=== PATIENT | female | born 1975 | race Caucasian/White ===

== ENCOUNTER 2023-04-18 08:29 | Day surgery (SDC) | payer BC, SELFPAY ==
--- NOTE | 2023-04-16 12:44 | HP.PCM_ITS ---
History and Physical Date of Admission: 04/18/23 Pre-Op History and Physical ? HPI: The patient is a 47 year old female presenting for pre-operative visit. She is scheduled for Hysteroscopy D&C and polypectomy with insertion of liletta IUD , for Aub and endometrial polp, contraception on . Procedure discussed along with risks, benefits and complications. Other alternatives discussed for management. Consent form signed? Yes. ? ? PAST MEDICAL HISTORY PAST MEDICAL HISTORY Diagnosis Date ? Asthma ? ? allergy induced ? Depression with anxiety ? ? history of ? Heartburn ? ? Migraine with aura ? ? Seasonal allergies ? ? ? PAST SURGICAL HISTORY PAST SURGICAL HISTORY Procedure Laterality Date ? PAST SURGICAL HISTORY OF ? 1995 ? pilonidal cyst ? PAST SURGICAL HISTORY OF ? ~2001 ? breast reduction ? TONSILLECTOMY HX ? 1992 ? TOOTH EXTRACTION ? ? ? wisdom teeth, bicuspids ? ? ? CURRENT MEDICATIONS Current Outpatient Medications Medication Sig Dispense Refill ? FLUoxetine (PROZAC) 10 mg capsule Take 1 capsule by mouth once daily. 30 capsule 2 ? montelukast (SINGULAIR) 10 mg tablet Take 1 tablet by mouth daily at be dtime. 90 tablet 3 ? albuterol HFA (PROAIR HFA) 90 mcg/actuation inhaler Inhale 2 Puffs as instructed every 6 hours as needed. For wheezing/shortness of breath 18 g 5 ? Fexofenadine-Pseudoephedrine (ONI-D 24 HOUR) 180-240 mg per 24 hr tablet Take 1 tablet by mouth once daily as needed (sinus/cold symptoms). 30 tablet 0 ? No current facility-administered medications for this visit. ? ? ALLERGIES: Codeine, Morphine, and Penicillins ? PERSONAL HISTORY: SOCIAL HISTORY Social History ? Tobacco Use ? Smoking status: Former ? ? Packs/day: 0.50 ? ? Years: 20.00 ? ? Pack years: 10.00 ? ? Types: Cigarettes ? ? Quit date: 12/02/2014 ? ? Years since quittin.3 ? Smokeless tobacco: Never ? Tobacco comments: ? ? started smoking 19yo. usually 1/2PPD Vaping Use ? Vaping Use: Never used Substance Use Topics ? Alcohol use: Yes ? ? Alcohol/week: 7.5 standard drinks ? ? Types: 1 Glasses of Wine (5oz), 2 Cans of Beer (12oz) per week ? ? Comment: a couple of drinks weekly ? Drug use: No ? FAMILY HISTORY: FAMILY HISTORY FAMILY HISTORY Problem Relation Age of Onset ? Hypertension Mother ? ? Thyroid Mother ? ? Hypertension Father ? ? Heart Father 76 ? [place], CABG x 6, heart surgery 2017 ? Uterine Fibroids Sister ? ? Coronary Artery Disease Maternal Grandfather ? ? [place] ? Diabetes Paternal Grandmother ? ? Coronary Artery Disease Paternal Grandfather ? ? [place] ? Breast Cancer Maternal Aunt ? ? Diabetes Paternal Uncle ? ? x2 ? Coronary Artery Disease Paternal Uncle ? ? CAB[place] ? ? REVIEW OF SYMPTOMS: negative except as noted above PHYSICAL EXAMINATION: ? VITALS: Blood pressure 122/70, height 5' 2.6 (1.59 m), weight 166 lb (75.3 kg), last menstrual period 03/15/2023. ? GENERAL: The patient is well nourished, well hydrated in no acute distress. , The patient is oriented to time, place, and person. NECK: full range of motion LUNGS: Clear to auscultation bilaterally. no wheezes, rhonchi or rales HEART: Regular rate and rhythm, Normal heart sounds, and No murmurs or gallops ? IMPRESSION: 47yo with AUB, Endometrial Polyp, Contraceptive mgmt ? PLAN: Hysteroscopy, D&C, polypectomy with symphion, Insertion Liletta IUD ? Pt has been counseled on risks/benefits and alternatives of surgery including but not limited to anesthesia, bleeding, infection, uterine perforation with subsequent injury to pelvic structures including bowel, bladder, ureters and vessels. Pt wishes to proceed with surgery at this time. ? Pre and post op instructions reviewed ? I have reviewed and updated past medical and surgical history, medications and allergies Dora Xavier MD ?3:25 PM
--- NOTE | 2023-04-17 | EMB_PTH ---
PATIENT: FEDERICO SNOW LOC: [facility] [place] U#:[id number] AGE/SX: 48/F ROOM: RE04/18/[address]: Dr. Dora Montano, MDDOB: 1975 BED: DIS: 04/18/2023 SPEC #: [id number] RECD: 04/18/23 12:03 STATUS: MARK MCCAINYanique #: [id number] JONATHAN: 04/17/23 00:[address]: Dora Montano DEPT: SURGICAL PATHOLOGY RECD BY: Charli Harrison ENTERED: 04/18/23 12:03 SP TYPE: ENDOM BX/C MALLIKA DR: Dr. Damien Reynoso MD Tissues: Endometrium, NOS Procedures: Surgery Specimen Level IV HEADER OPERATION: Hysteroscopy, D & C Symphion, polypectomy, IUD insertion PRE-OP DIAGNOSIS: Abnormal uterine bleeding, endometrial polyp, contraceptive management TISSUE SUBMITTED: Endometrial shavings and polyp MICROSCOPIC DIAGNOSIS Endometrial shavings and polyp: Polypoid fragments of disordered proliferative endometrium to focal simple hyperplasia without atypia. Squamous morules. Changes suggestive of adenomyoma/adenomyosis. AM:missy 04/19/2023 COMMENT Case has been reviewed in consultation with Dr. Oshea who concurs with the above diagnosis. CHITO:HEMALATHA MICROSCOPIC DESCRIPTION Slides are reviewed. GROSS DESCRIPTION Received in fixative is one container labeled with the patient's name and designated endometrial shavings and polyp. The specimen consists of multiple irregular fragments of cabrera-pink soft tissue mixed with hemorrhagic tissue that in aggregate measure 5.0 x 3.0 x 0.8 cm. The entire specimen is submitted in five cassettes. / Brittny 04/18/2023 TC:5 CPT: 98749 ADDENDUM ADDENDUM ADDENDUM ADDENDUM ADDENDUM ADDENDUM ADDENDUM ADDENDUM ADDENDUM ADDENDUM 05/20/2023 10:39 ADDENDUM 05/20/2023 10:39 ADDENDUM 05/20/2023 10:39 ADDENDUM 05/20/2023 10:39 ADDENDUM 05/20/2023 10:39 This addendum is added to incorporate an outside pathology consultation report. The case was examined at [facility] (#[id number]) and the following diagnosis was rendered. Endometrial biopsy: Fragments of atypical hyperplasia. Please see complete above mentioned consultation report in EMR
[2023-04-18] VITALS (7 sets, daily range): BP systolic 132–164; BP diastolic 82–95; PULSE 58–64; RESP 6–16; TEMP 36.3–36.6; O2SAT 96–100; BMI 29.2
[2023-04-18] MEDS: Lactated Ringers 1,000 ML 15 ML IV (08:58)
[2023-04-18 08:59] LABS: Hematocrit 44.2 % (37-47); Hemoglobin 14.2 g/dL (12.0-15.0); Mean Corp Hgb Conc 32.1 g/dL (32-36); Mean Corpuscular Hgb 29.6 pg (27.0-32.0); Mean Corpuscular Volume 92.3 fL (81-99); Mean Platelet Vol. 9.2 fl (6.2-12.0); Platelet Count 350 K/mm3 (150-450); RBC Distribution Width CV 13.3 % (11.6-14.6); RBC Distribution Width SD 45.1 fl (35.1-43.9); Red Blood Count 4.79 M/mm3 (4.2-5.4)
[2023-04-18 09:16] LABS: Internal QC Validated? YES +Cl - CLEAR BKGD; Pregnancy, Urine Negative Negative
[2023-04-18] MEDS: Levonorgestrel IUD (Liletta) 1 EACH INTRA-UTER (10:03)
--- NOTE | 2023-04-18 10:09 | PCM.OPRPT ---
Report of Operation Date of Procedure: 04/18/23 Pre-Operative Diagnosis: AUB, endometrial polyp, contraceptive mgmt Post-Operative Diagnosis: same Surgery/Procedure Performed:: Hysteroscopy, D&C, polypectomy, Liletta IUD insertion Description of Surgical Findings:: Multiple Polyps noted, appeared to have necrotic appearing tissue or polyps present. fluid deficit 50cc Surgeon: Dora Montano Type of Anesthesia: MAC Specimen's removed: endometrial polyps and endometrial curettings Estimated Blood Loss (mL): 10 Fluids Replaced: 1000 Description of Procedure: Informed consent was obtained the patient was taken the operating room she was placed in supine position. She was given anesthesia. She was then placed in the [facility] where she was prepped and draped in the normal sterile fashion. bladder drained at start of procedure. At this time the weighted speculum was placed in the posterior fornix of vagina. Single-tooth tenaculum was used to gently grasp the anterior lip the cervix. At this time the uterine cavity was sounded to approximately 8.5 cm. Gentle dilatation was performed once adequate dilatation of the cervix was achieved the hysteroscope using normal saline as a distention medium was placed. Entire cavity was consumed with polypoid and necrotic appearing tissue. At this time Symphion resecting device used to obtain endometrial curettings and to perform polypectomy. At the end gentle sharp curettage was performed- minimal residual tissue noted. IUD was then opened and Liletta was inserted to fundal aspect and deployed without complication. strings cut to 2.5cm from os. good hemostasis appreciated. Tissue will be sent to pathology for evaluation. Tenaculum removed. Good hemostasis. Instrument, lap count correct x 2. Vaginal Sweep was negative. Grafts/Implants Used: Liletta IUD Procedure Start Time: 09:32 Procedure Stop Time: 10:07 Complications none Admit VTE Documentation VTE Present on Admission: Yes VTE Mechan Device Prophylaxis: SCD's VTE Pharm Prophylaxis ordered?: No Reason prophylaxis not ordered:: Procedure Not Indicated
--- NOTE | 2023-04-18 10:17 | DCINST_ITS ---
Discharge Instructions Procedure D&C Diet Discharge Diet: No restrictions Activity May resume sexual activity in: 1 week Dressing / Incision Call your doctor if you observe: Fever of 101 or Higher, Inability to urinate, Using more than 1 pad per hour and Uncontrolled pain Follow Up Care Please Follow Up With: Dora Montano MD When: 1-2 weeks post OP if you need an appointment please call [phone] Test Results: Test results from this visit will be discussed in further detail at your follow- up appointment, if applicable. Discharge Plan Admission Attending Provider: Dora Montano Primary Care Provider: Damien Reynoso Discharge Orders/Prescriptions Prescriptions: No Action fluoxetine 10 mg capsule 10 mg PO DAILY montelukast 10 mg tablet 10 mg PO DAILY Label Comments: take 1 tablet by mouth daily at bedtime fexofenadine-pseudoephedrine [Eva-D 24 Hour] 180-240 mg Tablet Extended Release 24 Hr 1 tab PO DAILY PRN (Reason: Allergy Symptoms) Referrals / Follow Up: Damien Reynoso MD [Primary Care Provider] - Disposition Disposition (needs filled in before D/C Order can be placed): Home, Self Care
== END 2023-04-18 11:25 | disposition home or self-care (01) ==
LOC: SDC 08:30 → AC 08:32
PROVIDERS: Anesthesiology; PCP Family Medicine; Referring Provider Obstetrics & Gynecology; Visit Provider Obstetrics & Gynecology
PROC: 0UB98ZZ Excision of Uterus, Via Natural or Artificial Opening Endoscopic (ICD-10-PCS; CPT 58558; principal; 2023-04-18 09:45)
DX: N85.01 Benign endometrial hyperplasia (principal); N93.9 Abnormal uterine and vaginal bleeding, unspecified; F32.A Depression, unspecified; F12.90 Cannabis use, unspecified, uncomplicated; Z79.899 Other long term (current) drug therapy; Z87.891 Personal history of nicotine dependence; Z30.430 Encounter for insertion of intrauterine contraceptive device
CPT/HCPCS: 58558; 58300; 00952; 81025; 85027; 88305; J7120; J2405